=== PATIENT | female | born 2000 | race African-American/Black ===

== ENCOUNTER 2020-11-29 16:37 | Emergency (ER) | payer MEDICAID ==
[~2020-11-29] VITALS: Ht 167.6 cm; Wt 68.0 kg
[2020-11-29] MEDS ORDERED: ONDANSETRON 4MG ODT PO STA (17:14)
[2020-11-29 19:19] LABS: BASOPHILS % 0.2 % (0.0-2.0); EOSINOPHILS % 0.1 % (0.0-5.0); HEMATOCRIT. 37.9 % (36.0-48.0); HEMOGLOBIN. 12.2 g/dL (12.0-16.0); LYMPHOCYTES % 16.7 % (20.0-50.0); MEAN CORPUSCULAR HEMOGLOBIN 28.8 pg (28.0-32.0); MEAN CORPUSCULAR VOLUME 89.6 fL (81.0-99.0); MONOCYTES % 5.9 % (2.0-8.0); NEUTROPHILS % 77.1 % (40.0-76.0); PLATELET 303 x1000/uL (130-400); RED BLOOD CELL COUNT 4.23 mill/uL (4.2-5.4); RED CELL DISTRIBUTION WIDTH 15.8 % (11.6-14.6)
[2020-11-29 19:29] LABS: CHLORIDE 107 mEq/L (98-107)
[2020-11-29 19:33] LABS: ETHANOL BLOOD < 10 mg/dL
[2020-11-29 19:38] LABS: HCG SCREEN NEGATIVE
[2020-11-29] MEDS ORDERED: ONDANSETRON HCL 4MG/2ML INJ IV STA (20:05)
[2020-11-29] MEDS ORDERED: POTASSIUM CHLORIDE 20MEQ TABLET SR PO ONE (20:15)
[2020-11-29] MEDS ORDERED: SODIUM CHLORIDE 0.9% 1,000 ML IV ONE (20:15)
[2020-11-29] MEDS ORDERED: KETOROLAC 15MG/ML VIAL IV ONE (20:15)
[2020-11-29] MEDS ORDERED: ONDA4TAB5 MT (20:36)
[2020-11-29 22:30] VITALS: BP 120/76
== END 2020-11-29 23:00 | disposition home or self-care (01) ==
LOC: ER 16:37
DX: K52.9 Noninfective gastroenteritis and colitis, unspecified (principal); R03.0 Elevated blood-pressure reading, without diagnosis of hypertension; F12.90 Cannabis use, unspecified, uncomplicated
CPT/HCPCS: 36415; 74176; 80053; 80320; 83690; 84703; 85025; 93005; 96361; 96374; 96375; 99285; J1885; J2405; J7030; Q0162; G0480